=== PATIENT | female | born 1985 | race Two or more races ===

== ENCOUNTER 2020-07-06 11:49 | Outpatient (CLI) | payer OTHER | END 2020-07-06 12:16 | disposition home or self-care (01) | LOC: MAMO-SONO 11:49 | PROVIDERS: ATTEND Specialist | DX: Z12.31 Encounter for screening mammogram for malignant neoplasm of breast (principal); N64.4 Mastodynia ==

== ENCOUNTER 2020-07-08 11:18 | Outpatient (CLI) | payer OTHER | END 2020-07-08 11:23 | disposition home or self-care (01) | LOC: LAB 11:18 | PROVIDERS: ATTEND Specialist | DX: D64.89 Other specified anemias (principal); E03.8 Other specified hypothyroidism; E78.49 Other hyperlipidemia; N39.0 Urinary tract infection, site not specified ==

== ENCOUNTER → 2020-10-17 09:34 | Outpatient (CLI) | payer OTHER | END | disposition home or self-care (01) | LOC: LAB 09:34 | PROVIDERS: ATTEND Specialist | DX: N80.8 Other endometriosis (principal) ==